=== PATIENT | male | born 1970 | race Caucasian/White ===

== ENCOUNTER 2023-09-22 19:52 | Emergency (ER) | payer BC, SELFPAY ==
[2023-09-22 19:58] VITALS: BP 123/63; BMI 30.4
[2023-09-22 20:00] VITALS: BP 109/72
[2023-09-22] MEDS: NSS 1000 IV (20:09)
[2023-09-22 20:16] LABS: % Basophils 0.5 % (0-2); % Eosinophils 1.2 % (0-6); % Immature Granulocytes 0.4 % (0-0.5); % Lymphocytes 36.6 % (20.5-51.1); % Monocytes 7.5 % (1.7-9.3); % Neutrophils 53.8 % (42.2-75.2); Absolute Eosinophils 0.1 10^3/uL (0-0.7); Absolute Monocytes 0.6 10^3/uL (0.1-0.6); Absolute Neutrophils 4.4 10^3/uL (1.4-6.5); Hematocrit 39.9 % (39.0-52.0); Hemoglobin 14.5 g/dL (13.0-18.0); Mean Corp Hgb Conc. 36.3 g/dL (33.0-37.0); Mean Corpuscular Hgb 29.1 pg (27.0-31.0); Mean Platelet Volume 9.3 fL (7.4-10.4); Nucleated Red Blood Cells % 0 % (-); Platelet Count 186 10^3/uL (130-400); Red Blood Cell Count 4.99 10^6/uL (4.70-6.10); Red Cell Dist. Width 12.6 % (11.5-14.5); White Blood Cell Count 8.2 10^3/uL (4.8-10.8)
[2023-09-22] MEDS: ZOFRAN 4 MG IV (20:16)
[2023-09-22 20:40] LABS: ALT (SGPT) 23 U/L (0-50); AST (SGOT) 28 U/L (17-59); Albumin 4.1 g/dl (3.5-5.0); Alkaline Phosphatase 79 U/L (38-126); Blood Urea Nitrogen 19 mg/dl (9-20); Calcium 8.8 mg/dl (8.4-10.2); Carbon Dioxide 27 mmol/L (22-30); Chloride 105 mmol/L (98-107); Estimated Creatinine Clearance > 125 ml/min; Glucose 101 mg/dl (70-99); Potassium 3.9 mmol/L (3.5-5.1); Sodium 136 mmol/L (135-145); Total Bilirubin 0.5 mg/dl (0.2-1.3); Total Protein 6.5 g/dl (6.3-8.2); eGFR > 60.00
[2023-09-22 21:00] VITALS: BP 112/58
[2023-09-22 21:43] LABS: Alcohol None Detected
[2023-09-22 22:00] VITALS: BP 125/62
--- NOTE | 2023-09-22 22:17 | EDRN ---
Patient resting comfortably, nausea has subsided, informed him of results, resting comfortably with call rooney in reach.
[2023-09-22 23:00] VITALS: BP 135/62
--- NOTE | 2023-09-22 23:00 | ED.GENMED ---
History of Present Illness
General
Chief Complaint: Fainting Sensation
Source: patient
Exam Limitations: none
Time Seen by Provider: 09/22/23 20:17
Nursing documentation reviewed up to this point in time: agreed with
Travel History
Have you had any contact with someone who has COVID-19?: No
Do you have any symptoms of coronavirus? Fever > 100 degrees, chills, cough, shortness of breath, sore throat, loss of taste or smell, muscle aches, or headache?: No
History of Present Illness
History of Present Illness:
Patient is a 53-year-old male who presents to the emergency department after a syncopal episode striking his forehead. Patient was not feeling well all day and had not eaten or drank much. Patient has been under increasing stress with his family
as his father is dying of Parkinson's and the patient is trying to care for him. Patient denies syncope before except when having blood drawn. Patient denies any headache, chest pain, shortness of breath or palpitations. Patient denies any recent
illnesses or injuries. Patient has had cervical spine surgery years ago. Patient denies any GI or symptoms. Patient denies fever or chills. Patient's tetanus is up-to-date. Patient denies any visual or speech difficulties. Patient denies
any focal weakness or ataxia.
Past History
Past History
ED Past Medical History: Arrthythmia (Atrial fibrillation), GERD and Other (Kidney stones)
ED Past Surgical History: Orthopedic
Social History
Tobacco: Non-smoker
Review of Systems
Review of Systems
All Other Systems: ROS reviewed and negative except as documented in HPI and ROS
Constitutional: Reports fatigue; Denies fever, weight gain, weight loss or chills
EENT: Reports no symptoms
Respiratory: Reports no symptoms
Cardiac: Reports syncope; Denies chest pain, diaphoresis or palpitations
ABD/GI: Reports no symptoms
: Reports no symptoms
Musculoskeletal: Reports no symptoms
Skin: Reports no symptoms
Neurological: Reports no symptoms
Hematologic/Lymphatic: Reports no symptoms
Psychiatric: Reports no symptoms
Phy Exam
Physical Exam
Physical Exam:
Physical Exam
General: mild distress, alert and appropriate, well nourished, well hydrated
HENT: Normocephalic with 4 cm Y-shaped laceration in the superior forehead, immobilized with no tracheal deviation or contusion
Eyes: Clear sclera, conjuctiva without injection
Heart: Regular rhythm and rate. No S3, S4. No murmur. No NVD
Lungs: No respiratory distress, no stridor, lung sounds clear and equal bilaterally, chest wall symmetrical and nontender
Abdomen: Soft, nontender, BS good
Neuro: Alert and oriented x 3, CN II - XII intact, no motor focality, no cerebellar dysfunction
Skin: Laceration as stated above
Psychiatric: well kept. interactive and cooperative
Extremities: No edema, cyanosis, tenderness
Musculoskeletal: No cervical, thoracic or lumbar spine tenderness. No pelvic tenderness. Hips full range of motion without pain
Course
Orders/Labs/Results
Orders:
Orders
09/22/23 19:55
CT Head W/o Iv Contrast Urgent
Comment:
Reason For Exam: syncope head strike
Cardiac Monitoring- Treatment ONCE
09/22/23 19:56
Electrocardiogram (*1) Urgent
Reason for Study: Syncope
EKG- Treatment ONCE
09/22/23 20:06
Alcohol Urgent
CMP [Comprehensive Metabolic Panel] Urgent
Complete Blood Count/With Diff Urgent
09/22/23 20:09
0.9% Sodium Chloride 1000 ml [Nss] 1,000 ml IV BOLUS
09/22/23 20:11
Ondansetron Injectable [Zofran] 4 mg .ROUTE .[facility]
09/22/23 20:15
CT Cervical Spine W/o Iv Contr Urgent
Comment:
Reason For Exam: fall
Ondansetron Injectable [Zofran] 4 mg IV NOW STA
09/22/23 20:17
0.9% Sodium Chloride 1000 ml [Nss] 1,000 ml IV BOLUS
Tetanus/Diphth/Acelpertussis [Adacel] 0.5 ml IM .ONCE ONE
Abnormal Lab Results
09/22/23
20:06
Glucose 101 H mg/dl
(70-99)
09/22/23 20:06
09/22/23 20:06
Vital Signs
Initial and Last Documented VS:
Initial Vital Signs
Pulse Resp Pulse Ox
58 18 97
09/22/23 19:57 09/22/23 19:57 09/22/23 19:57
Last Documented Vital Signs
Temp Pulse Resp BP Pulse Ox
97.7 F 55 20 125/62 97
09/22/23 19:58 09/22/23 20:22 09/22/23 20:22 09/22/23 22:00 09/22/23 20:22
Procedures
Laceration Closure
Superior Medial Forehead:
Status of Wound: clean
Size of Wound in cm: 4
Description of Wound Edges: ragged and surrounded by abrasion
Preparation: cleaned with Betadine
Anesthesia: 1% Lidocaine with epi and added Na Bicarb to local
Revision/Debridement: minor revision
Wound exploration: explored to base- no FB
Type of Closure: layered closure
Skin Closure Material: 6-0 prolene (14) and 5-0 chromic gut (3)
Number of sutures: 17
*Radiology
Radiology exam reviewed: radiology read reviewed (CT of head and neck shows nothing acute)
*Pulse Oximetry
Patient hypoxic: no
*EKG
Interpreted by ED Provider?: Yes
EKG Intrepretation Date: 09/22/23
EKG Intrepretation Time: 23:06
Interpretation: abnormal
Comparison EKG: no comparison EKG present
Heart Rate: 57
Rate: normal
Rhythm: sinus
[place]: left axis deviation
Interval: normal interval
QRS Pattern: right bundle branch block
Ischemia: no ischemia
*[employer] Interpretation
Rate: bradycardiac
Interpretation: abnormal
Heart Rate: 55
Rhythm: sinus
*Critical Care Note
Total Time (30-74mins, 75-104mins- exclusive of procedures): Not Applicable
ED Attending Note
-
Portions of this chart may have been created with voice recognition software.� Occasional wrong word or��sound alike� substitutions may have occurred due to the inherent limitations of voice recognition software.
Discharge Plan
Departure
Patient Disposition: Home (Routine Discharge)
Date of Disposition: 09/22/23
Time of Disposition: 23:09
Patient with high blood pressure during this ER visit?: No
Condition: Good
Covid-19: Not Applicable
Discharge Problem:
Syncope, Forehead laceration
Instructions: Laceration Repair With Stitches (DC), Syncope (Fainting) (DC)
Prescriptions:
No Action
No Current Medications
0
Referrals:
UNKNOWN - PT DOES,NOT KNOW [Family Provider] -
Activity Restrictions/Additional Instructions:
Keep the area clean with soap and water. You may shower. Acetaminophen 650 mg to 1000 mg every 6 hours for pain. Sutures come out in 5 to 7 days. You can see your family doctor to have those removed.
Interventions
Interventions:
*Risk Screen - Suicide Last Done: 09/22/23 19:58
*General Assessment Last Done: 09/22/23 19:58
*Neglect/Abuse Screening Last Done: 09/22/23 19:58
ED- Fall Risk Assessment Last Done: 09/22/23 21:17
*ED COVID-19 Vaccine History Last Done: 09/22/23 19:58
ED- Cardiac Assessment Last Done: 09/22/23 21:17
ED- Neurological Assessment Last Done: 09/22/23 21:17
Discharge Date and Time
Print Language: ROMANSH
--- NOTE | 2023-09-22 23:47 | EDRN ---
Wound cleaned and dressed
== END 2023-09-22 23:48 | disposition home or self-care (01) ==
LOC: EMR 19:52
PROVIDERS: EMERGENCY PHYSICIAN Emergency Medicine
DX: R55 Syncope and collapse (principal); S01.81XA Laceration without foreign body of other part of head, initial encounter; W19.XXXA Unspecified fall, initial encounter
CPT/HCPCS: 99285; 12052; 96374; 96361; 70450; 72125; 80053; 82077; 85025; 90715; 93005